=== PATIENT | male | born 1960 | race African-American/Black ===

== ENCOUNTER 2017-02-15 05:23 | Emergency (ER) | payer SELFPAY ==
[~2017-02-15] VITALS: Ht 188 cm; Wt 96.0 kg
[~2017-02-15 05:23] MED LIST: AMIT25TA PO; HYDR25TA6 PO; QUET50TA5 PO
[2017-02-15] MEDS ORDERED: LISI-170 PO (05:38)
[2017-02-15] MEDS ORDERED: ASPIRIN 81 MG TABLET CHEW ONE (07:00)
[2017-02-15] MEDS ORDERED: ASPIRIN 81 MG TABLET CHEW PO ONE (07:00)
[2017-02-15 07:12] VITALS: BP 129/83
[2017-02-15 07:14] LABS: HEMATOCRIT 40.2 % (39.2-51.8); HEMOGLOBIN 13.3 g/dL (13.7-18.0); WHITE BLOOD COUNT 12.1 x10^3/uL (3.4-10)
[2017-02-15 07:24] LABS: ASPARTATE AMINO TRANSFERASE 40 U/L (15-37); BLOOD UREA NITROGEN 14 mg/dL (7-18)
[2017-02-15 07:29] LABS: IS PT STATUS REG ER OR PRE ER? YES
== END 2017-02-15 08:37 | disposition home or self-care (01) ==
LOC: ED 07:31
DX: R07.89 Other chest pain (principal); R11.0 Nausea; I10 Essential (primary) hypertension
CPT/HCPCS: 36415; 71010; 80053; 84484; 85025; 93005; 99285